=== PATIENT | male | born 1970 | race Two or more races ===

== ENCOUNTER 2021-09-11 08:45 | Emergency (ER) | payer OTHER ==
[~2021-09-11] VITALS: Ht 167.6 cm; Wt 73.5 kg
[2021-09-11] MEDS ORDERED: ACETAMINOPHEN-CO5 ML PO (09:08)
[2021-09-11] MEDS ORDERED: AMOXICILLIN875 MG PO (09:09)
[2021-09-11] MEDS ORDERED: IBU400 MG PO (09:09)
== END 2021-09-11 13:03 | disposition home or self-care (01) ==
LOC: ER 08:45
DX: R10.32 Left lower quadrant pain (principal); I10 Essential (primary) hypertension